=== PATIENT | female | born 1955 | race Caucasian/White ===

== ENCOUNTER → 2016-12-25 | Outpatient (CLI) | payer OTHER, MEDICAID ==
--- NOTE | 2016-12-30 17:11 | RAD ---
HISTORY: Dyspnea on exertion Study: Two-view chest Comparison: 06/07/2013 Findings: The trachea is midline. The cardiac silhouette is unremarkable. The lungs are clear without focal i nfiltrate or effusion. The bony thorax is unremarkable. IMPRESSION: 1. No acute cardiopulmonary disease. Reported By:
== END ==
LOC: RAD 14:41
PROVIDERS: ATTEND Nurse Practitioner Family
DX: R06.09 Other forms of dyspnea (principal)
CPT/HCPCS: 71020

== ENCOUNTER 2020-06-24 16:10 | Observation (INO) ==
--- NOTE | 2020-06-24 16:19 | ED.ABDFE ---
HPI Time Seen Time Seen by Provider: 06/24/20 16:19 Reviewed Nurses Notes Review: Yes Source History Provided: Patient Mode of arrival Mode of Arrival: Ambulatory Timing Came on: Gradually Duration How lon Duration: Days Location Location: [facility] Severity Severity: Moderate Quality Quality: Aching Context History of: Similar pain (dx) (ibs) Modifying factors Worsening Factors: Movement Improving Factors: Lying Still Associated signs and symptoms Associated Signs and Symptoms: Nausea, Diarrhea and Constipation; denies Vomiting, Hematemesis, Hematochezia, Melena, Vaginal Discharge, Dysuria, Frequency and Urgency PMH PMH Past Medical History: Coronary Artery Disease Past Medical History Comment: ibs Surgical History: Angioplasty/Stents Family History History of Family Medical Conditions: No Social History Type of Tobacco Use: None Alcohol Use: Rarely Do you use any recreational Drugs:: No ROS Review of Systems Constitutional: negative Chills and Fever Eyes: No Symptoms Reported ENTM: No Symptoms Reported Respiratoy: No Symptoms Reported Cardiovascular: No Symptoms Reported Gastrointestinal/Abdominal: Abdominal Pain, Constipation, Diarrhea, Nausea and Vomiting Genitourinary: negative Dysuria and Frequency Neurological: No Symptoms Reported Musculoskeletal: No Symptoms Reported Integumentary: No Symptoms Reported Hematologic/Lymphatic: No Symptoms Reported Endocrine: No Symptoms Reported Psychiatric: No Symptoms Reported All Other Systems: Reviewed and Negative PE Vital Signs Vitals: Temperature 36.8 C Pulse Rate 106 Respiratory Rate 20 Blood Pressure 109/89 O2 Sat by Pulse Oximetry 94 General Limitations: No Limitations and Language Barrier General Appearance: Alert, In No Apparent Distress and In Distress (mild- mod pain distress) Head Head Exam: Normal Inspection Eyes Eye exam: Normal Appearance ENT ENT Exam: Normal Exam Neck Neck Exam: Normal Inspection Chest Chest Inspection: Normal Inspection Respiratory Respiratory Exam: Normal Lung Sounds Bilat Cardiovascular Cardiovascular Exam: Regular Rate and Normal Rhythm Abdominal Exam Abdominal Exam: Normal Bowel Sounds, Distention, Tenderness and Guarding; negative Rigidity Abdominal Tenderness: RLQ Rectal Rectal Exam: Deferred Back Back Exam: Normal Inspection Extremeties Extremities Exam: Normal Inspection Neurologic Neurological Exam: Alert and Oriented X3 Psychiatric Psychiatric Exam: Normal Affect and Normal Mood Skin Skin Exam: Warm, Dry and Intact MDM Differential Diagnosis Differential Diagnosis- Considerations may include:: Appendicitis, Bowel Obstruction, Cholcystitis, Constipation, Diverticular disease, Gastritus/PUD, Gastroenteritis, Inflammatory BD, Ischemic Bowel and Pancreatitis COURSE Treatment Treatment: 1658: Patient w/ recent hx of laxative use d/t chronic constipation. Hx of ibs on linzess now w/ rlq abd pain. RLQ tenderness on exam as well as abd distension. Will order labs and possible ct of abd w/ po contrast. 2100: Mild leukocytosis. 2L NSS ordered. CT abd with evidence of acute appendicitis. d/w Dr goodwin whom agrees to consult. Discussed with dr delong whom agrees to admit. 2g ancef given and 500 mg of flagyl. Education/Counseling Education/Counseling: Patient Educated On: Treatment, Diagnosis, Prognosis and Needs for Follow Up ROR Labs Reviewed Laboratory Results Reviewed?: Yes Result Diagrams: 06/24/20 16:46 06/24/20 16:46 Laboratory: WBC 13.8 X10^3/uL (3.6-10.0) H 06/24/20 16:46 RBC 4.76 X10^6/uL (3.5-5.4) 06/24/20 16:46 Hgb 13.7 g/dL (12.0-16.0) 06/24/20 16:46 Hct 40.9 % (36.0-47.0) 06/24/20 16:46 MCV 85.8 fL (80.0-100.0) 06/24/20 16:46 MCH 28.7 pg (27.0-34.0) 06/24/20 16:46 MCHC 33.4 g/dL (33.0-35.0) 06/24/20 16:46 RDW 14.9 % (11.6-16.5) 06/24/20 16:46 Plt Count 214 X10^3/uL (150.0-450.0) 06/24/20 16:46 MPV 8.5 fL (7.4-11.0) 06/24/20 16:46 Neut % (Auto) 82.1 % (42.0-75.0) H 06/24/20 16:46 Lymph % (Auto) 9.5 % (21.0-51.0) L 06/24/20 16:46 Johnson % (Auto) 7.3 % (0.0-13.0) 06/24/20 16:46 Eos % (Auto) 0.5 % (0.9-2.9) L 06/24/20 16:46 Baso % (Auto) 0.6 % (0.2-1.0) 06/24/20 16:46 Neut # (Auto) 11.3 x10^3/uL (2.2-4.8) H 06/24/20 16:46 Lymph # (Auto) 1.3 X10^3/uL (1.3-2.9) 06/24/20 16:46 Johnson # (Auto) 1.0 x10^3/uL (0.3-0.8) H 06/24/20 16:46 Eos # (Auto) 0.1 x10^3/uL (0.0-0.2) 06/24/20 16:46 Baso # (Auto) 0.1 X10^3/uL (0.0-0.1) 06/24/20 16:46 Absolute Nucleated RBC 0.0 /100WBC 06/24/20 16:46 Sodium 139 mmol/L (136-145) 06/24/20 16:46 Corrected Sodium 141 mmol/L (136-145) 06/24/20 16:46 Potassium 3.7 mmol/L (3.5-5.1) 06/24/20 16:46 Chloride 101 mmol/L (98-107) 06/24/20 16:46 Carbon Dioxide 26.6 mmol/L (21-32) 06/24/20 16:46 BUN 10 mg/dL (7-18) 06/24/20 16:46 Creatinine 0.95 mg/dL (0.55-1.02) 06/24/20 16:46 Est GFR (MDRD) Af Amer > 60 (>60) 06/24/20 16:46 Est GFR (MDRD) Non-Af > 60 (>60) 06/24/20 16:46 Glucose 164 mg/dL (65-99) H 06/24/20 16:46 Lactic Acid 1.7 mmol/L (0.4-2.0) 06/24/20 16:46 Calcium 9.6 mg/dL (8.5-10.1) 06/24/20 16:46 Lipase 82 Units/L (73-393) 06/24/20 16:46 XRAY XRAY Interpreted by: Radiologist X-ray Results: ct abd/ pelvis: acute appendicitis abdominal x ray: non specific bowel ashley pattern Opioid Opioid Risk Tool Total: 0 Total Score Risk Category: Low Risk Copyright: Neal DOMINGUEZ predicting aberrant behaviors Diagnosis Discharge Problem: Appendicitis Qualifiers: Appendicitis type: acute appendicitis Acute appendicitis type: with localized peritonitis Appendicitis gangrene presence: without gangrene Appendicitis perforation presence: without perforation Appendicitis abscess presence: without abscess Qualified Code(s): K35.30 - Acute appendicitis with localized peritonitis, without perforation or gangrene Instructions Forms: Patient Portal Social Distancing
[2020-06-24 16:24] VITALS: BMI 23.2
[2020-06-24] MEDS ORDERED: NS 1000 ML 1,000 ML IV ONE ×2 (16:56→21:00)
[2020-06-24] MEDS ORDERED: DILAUDID INJ IVP ONE (16:56)
[2020-06-24] MEDS ORDERED: ZOFRAN INJ 4 MG VIAL IVP ONE (16:56)
--- NOTE | 2020-06-24 16:57 | RAD ---
HISTORY:Right lower quadrant abdominal painStudy: Acute abdominal seriesComparison:NoneFindings:The lungs are clear without consolidation, effusion or pneumothorax. The cardiac and mediastinal contours are within normal limits.Flat plate and upright evaluation of the abdomen demonstrates a nonobstructive bowel gas pattern with scattered gas and stool the large bowel. No gross free intraperitoneal air. No pathological soft tissue mass or calcification can be observed. The bony structures are grossly intact.IMPRESSION:1. No acute cardiopulmonary abnormality.2. Nonspecific bowel gas pattern with scattered stool and air in large bowel.Electronically signed by: LATOYA GREY (Jun 24, 2020 16:55:03)
[2020-06-24] MEDS ORDERED: DILAUDID INJ ONE (16:59)
[2020-06-24] MEDS ORDERED: ZOFRAN INJ 4 MG VIAL ONE ×2 (16:59→22:01)
[2020-06-24] MEDS ORDERED: NS 1000 ML 1,000 ML ONE ×2 (17:00→21:02)
[2020-06-24 17:01] LABS: BASOPHILS # (AUTO) 0.1 X10^3/uL (0.0-0.1); BASOPHILS % (AUTO) 0.6 % (0.2-1.0); EOSINOPHILS # (AUTO) 0.1 x10^3/uL (0.0-0.2); EOSINOPHILS % (AUTO) 0.5 % (0.9-2.9); HEMATOCRIT 40.9 % (36.0-47.0); HEMOGLOBIN 13.7 g/dL (12.0-16.0); LYMPHOCYTES # (AUTO) 1.3 X10^3/uL (1.3-2.9); LYMPHOCYTES % (AUTO) 9.5 % (21.0-51.0); MEAN CORPUSCULAR HEMOGLOBIN 28.7 pg (27.0-34.0); MEAN CORPUSCULAR HGB CONC 33.4 g/dL (33.0-35.0); MEAN CORPUSCULAR VOLUME 85.8 fL (80.0-100.0); MEAN PLATELET VOLUME 8.5 fL (7.4-11.0); MONOCYTES % (AUTO) 7.3 % (0.0-13.0); NEUTROPHILS # (AUTO) 11.3 x10^3/uL (2.2-4.8); NEUTROPHILS % (AUTO) 82.1 % (42.0-75.0); PLATELET COUNT 214 X10^3/uL (150.0-450.0); RED BLOOD COUNT 4.76 X10^6/uL (3.5-5.4); RED CELL DISTRIBUTION WIDTH 14.9 % (11.6-16.5); WHITE BLOOD COUNT 13.8 X10^3/uL (3.6-10.0)
[2020-06-24 17:03] LABS: BLOOD UREA NITROGEN 10 mg/dL (7-18); CALCIUM 9.6 mg/dL (8.5-10.1); CARBON DIOXIDE 26.6 mmol/L (21-32); CHLORIDE 101 mmol/L (98-107); COR NA(FOR HYPERGLY) 141 mmol/L (136-145); CREATININE 0.95 mg/dL (0.55-1.02); SODIUM 139 mmol/L (136-145); eGFR NON BLACK RACES > 60 (>60)
[2020-06-24 17:28] LABS: LACTIC ACID 1.7 mmol/L (0.4-2.0)
[2020-06-24] MEDS ORDERED: NS 100 ML IV 100 ML IV ONE (18:31)
--- NOTE | 2020-06-24 19:53 | CT ---
HISTORYRLQ PAIN, ABD DISTENTIONSTUDYABDOMEN/PELVIS WITH CONCOMPARISONNoneTECHNIQUEAxial CT images of the abdomen and pelvis were obtained after the administration of IV contrast and reformatted into coronal and sagittal planes for further evaluation. Enteric contrast was also administered.Radiation dose: 685.70 mGy-cm total DLPFINDINGSLung bases are clear.Coronary artery calcifications.Stomach appears normal.Solid visceral organs of the upper abdomen are unremarkable.Gallbladder appears normal with no biliary dilatation.Homogeneous enhancement of the kidneys without hydronephrosis or hydroureter.Unremarkable appearance of the urinary bladder.Imaged reproductive structures are unremarkable.Moderate to large stool burden in the colon.Small bowel wall thickening involving the distal and terminal ileum.Irregular thickening of the appendiceal wall with the appendix widened up to 14 mm.Inflammatory changes in the right lower quadrant surrounding the terminal ileum and appendix.No pneumoperitoneum.No significant fluid collection.No adenopathy.No acute osseous abnormality.Severe degenerative disc disease at L5-S1 with vacuum disc phenomena.Otherwise, mild to moderate degenerative disc disease in the thoracolumbar spine without vertebral body height loss.Moderate to severe facet degenerative changes from L3-S1.IMPRESSIONIrregular thickening of the appendiceal wall with the appendix widened up to 14 mm. There are inflammatory changes in the right lower quadrant which are centered on the appendix. The wall thickening in the distal/terminal ileum is therefore likely reactive. Findings are most consistent with acute appendicitis with the irregular wall appearance concerning for impending perforation.Electronically signed by: Ravinder Maria (Jun 24, 2020 19:51:32)
[2020-06-24] MEDS ORDERED: ANCEF VIAL 1 GRAM IVP ONE ×2 (19:57→20:07)
[2020-06-24] MEDS ORDERED: ANCEF VIAL 1 GRAM ONE ×2 (19:59→20:08)
[2020-06-24] MEDS ORDERED: NS 100 ML IV + SPIKE MINIBAG* 100 ML IV ONE ×2 (20:00→20:08)
[2020-06-24] MEDS ORDERED: NS 1000 ML 1,000 ML IV SCH (21:00)
[2020-06-24] MEDS ORDERED: FLAGYL IV PREMIX 500 MG BAG 500 MG/100 ML BAG IV SCH (21:00)
[2020-06-24] MEDS ORDERED: FLAGYL IV PREMIX 500 MG BAG 500 MG/100 ML BAG IV ONE (21:02)
--- NOTE | 2020-06-24 21:02 | RAD ---
HISTORYPRE OPSTUDYCHEST, 1 VIEWCOMPARISONNone availableTECHNIQUEChest radiographic imaging, AP portable projection, 1 imageFINDINGSNo cardiomegaly.No focal airspace disease.No pleural effusion.No pneumothorax.No acute osseous abnormality.IMPRESSIONNo imaging findings of acute cardiopulmonary disease.Electronically signed by: Ravinder Maria (Jun 24, 2020 20:59:51)
[2020-06-24] MEDS ORDERED: BRIDION ONE (21:17)
[2020-06-24] MEDS ORDERED: ZEMURON 50 MG VIAL ONE (21:18)
[2020-06-24] MEDS ORDERED: OFIRMEV IV 1000 MG VIAL 1,000 MG/100 ML VIAL IV ONE (21:18)
[2020-06-24] MEDS ORDERED: FENTANYL INJ 100 mcg ONE (21:18)
[2020-06-24] MEDS ORDERED: LTA KIT LIDOCAINE 4% ONE (22:01)
[2020-06-24] MEDS ORDERED: SUPRANE ONE (22:01)
[2020-06-24] MEDS ORDERED: XYLOCAINE 2 % (PLAIN) ONE (22:01)
[2020-06-24] MEDS ORDERED: VERSED ONE (22:01)
[2020-06-24] MEDS ORDERED: DIPRIVAN VIAL ONE (22:01)
[2020-06-24] MEDS ORDERED: TORADOL 30 MG VIAL ONE (22:01)
[2020-06-24 22:03] LABS: BILIRUBIN,URINE NEGATIVE (NEGATIVE); BLOOD/HEMOGLOBIN,URINE 3+ (NEGATIVE); GLUCOSE, URINE 4+ (NEGATIVE); KETONES,URINE 2+ (NEGATIVE); LEUKOCYTE ESTERASE ,URINE NEGATIVE (NEGATIVE); NITRITES,URINE NEGATIVE (NEGATIVE); PROTEIN,URINE 1+ (NEGATIVE); UROBILINOGEN,URINE NORMAL (NORMAL)
[2020-06-24] MEDS ORDERED: BACTROBAN TOPICAL OINT ONE (22:21)
[2020-06-24 22:23] LABS: APPEARANCE,URINE CLEAR (CLEAR); COLOR,URINE STRAW (YELLOW); RBC,URINE NONE SEEN /HPF (0-3)
[2020-06-24 22:24] LABS: BACTERIA,URINE TRACE /HPF (NEGATIVE); SQUAMOUS EPITHELIAL CELL,UR RARE /HPF (NEGATIVE)
[2020-06-24] MEDS ORDERED: PHENERGAN INJ 25 MG IM PRN (23:27)
[2020-06-24] MEDS ORDERED: BENADRYL INJ 50 MG VIAL IVP PRN (23:27)
[2020-06-24] MEDS ORDERED: ZOFRAN INJ 4 MG VIAL IVP PRN ×2 (23:27→23:35)
[2020-06-24] MEDS ORDERED: REGLAN INJ 10 MG VIAL IVP PRN (23:27)
[2020-06-24] MEDS ORDERED: DILAUDID INJ IVP PRN (23:27)
[2020-06-25] MEDS: D5 1/2 NS 1000 ML 1,000 ML IV SCH ×4 (00:46→23:10)
[2020-06-25] MEDS: ZOSYN VIAL 3.375 GRAMS 3.375 G in NS 100 ML IV + SPIKE MINIBAG* 100 ML IV SCH ×4 (00:47→23:10)
[2020-06-25 06:38] LABS: ALANINE AMINOTRANSFERASE 11 Units/L (12-78); ALBUMIN 2.9 g/dL (3.4-5.0); ALKALINE PHOSPHATASE 51 Units/L (46-116); ASPARTATE AMINO TRANSFERASE 11 Units/L (15-37); BLOOD UREA NITROGEN 11 mg/dL (7-18); CALCIUM 8.1 mg/dL (8.5-10.1); CARBON DIOXIDE 24.7 mmol/L (21-32); CHLORIDE 106 mmol/L (98-107); COR NA(FOR HYPERGLY) 143 mmol/L (136-145); CREATININE 0.87 mg/dL (0.55-1.02); SODIUM 141 mmol/L (136-145); TOTAL PROTEIN 6.5 g/dL (6.4-8.2); eGFR NON BLACK RACES > 60 (>60)
[2020-06-25 07:17] LABS: BASOPHILS % (AUTO) 0.3 % (0.2-1.0); EOSINOPHILS % (AUTO) 0.1 % (0.9-2.9); HEMATOCRIT 34.4 % (36.0-47.0); HEMOGLOBIN 11.3 g/dL (12.0-16.0); LYMPHOCYTES # (AUTO) 0.7 X10^3/uL (1.3-2.9); MEAN CORPUSCULAR HEMOGLOBIN 28.6 pg (27.0-34.0); MEAN CORPUSCULAR HGB CONC 32.9 g/dL (33.0-35.0); MEAN CORPUSCULAR VOLUME 86.8 fL (80.0-100.0); MEAN PLATELET VOLUME 7.4 fL (7.4-11.0); MONOCYTES # (AUTO) 0.5 x10^3/uL (0.3-0.8); NEUTROPHILS # (AUTO) 7.5 x10^3/uL (2.2-4.8); NEUTROPHILS % (AUTO) 85.6 % (42.0-75.0); PLATELET COUNT 206 X10^3/uL (150.0-450.0); RED BLOOD COUNT 3.96 X10^6/uL (3.5-5.4); WHITE BLOOD COUNT 8.8 X10^3/uL (3.6-10.0)
[2020-06-25] MEDS: FLAGYL IV PREMIX 500 MG BAG 500 MG/100 ML BAG IV SCH ×2 (08:20→16:31)
--- NOTE | 2020-06-25 08:20 | DR.PROGNOT ---
Hospital Progress Notes - Progress Note for Day of: Progress Note Date: 06/25/20 - Chief Complaint Chief Complaint: doing very well . less abdominal pain , no nausea or vomiting . BP is above 100 all night .( Pt was dehydrated and behind in fluid ). WBC is normal . Temp 98.2 - Past Medical Family Social History Past Med/Fam/Surg Hx: No changes since H&P Allergies: Allergies No Known Drug Allergies Allergy (Verified 06/24/20 17:20) - Review Of Systems ROS: No change since H&P - Vital Signs Vital Signs: Temperature 98.2 F Pulse Rate [Left Radial] 69 Pulse Rate 89 Respiratory Rate 18 Blood Pressure [Left Arm] 102/63 Blood Pressure 88/55 O2 Sat by Pulse Oximetry 98 - Physical Exam Oriented: Normal Eyes: Normal Ear: Normal Nose: Normal Throat: Normal Cardiovascular: Normal : Normal GI:Auscultation: Decreased GI:Palpation: Normal GI: Tenderness: Diffuse (soft , full abdomen with hypoactive BS ) Mood Description: Calm Speech Pattern: Appropriate - Laboratory and Diagnostics Result Diagrams: 06/25/20 05:46 06/25/20 05:46 Labs: Laboratory WBC 8.8 X10^3/uL (3.6-10.0) 06/25/20 05:46 RBC 3.96 X10^6/uL (3.5-5.4) 06/25/20 05:46 Hgb 11.3 g/dL (12.0-16.0) L D 06/25/20 05:46 Hct 34.4 % (36.0-47.0) L 06/25/20 05:46 MCV 86.8 fL (80.0-100.0) 06/25/20 05:46 MCH 28.6 pg (27.0-34.0) 06/25/20 05:46 MCHC 32.9 g/dL (33.0-35.0) L 06/25/20 05:46 RDW 15.0 % (11.6-16.5) 06/25/20 05:46 Plt Count 206 X10^3/uL (150.0-450.0) 06/25/20 05:46 MPV 7.4 fL (7.4-11.0) 06/25/20 05:46 Neut % (Auto) 85.6 % (42.0-75.0) H 06/25/20 05:46 Lymph % (Auto) 8.0 % (21.0-51.0) L 06/25/20 05:46 Glacier % (Auto) 6.0 % (0.0-13.0) 06/25/20 05:46 Eos % (Auto) 0.1 % (0.9-2.9) L 06/25/20 05:46 Baso % (Auto) 0.3 % (0.2-1.0) 06/25/20 05:46 Neut # (Auto) 7.5 x10^3/uL (2.2-4.8) H 06/25/20 05:46 Lymph # (Auto) 0.7 X10^3/uL (1.3-2.9) L 06/25/20 05:46 Glacier # (Auto) 0.5 x10^3/uL (0.3-0.8) 06/25/20 05:46 Eos # (Auto) 0.0 x10^3/uL (0.0-0.2) 06/25/20 05:46 Baso # (Auto) 0.0 X10^3/uL (0.0-0.1) 06/25/20 05:46 Absolute Nucleated RBC 0.0 /100WBC 06/25/20 05:46 Sodium 141 mmol/L (136-145) 06/25/20 05:46 Corrected Sodium 143 mmol/L (136-145) 06/25/20 05:46 Potassium 3.7 mmol/L (3.5-5.1) 06/25/20 05:46 Chloride 106 mmol/L (98-107) 06/25/20 05:46 Carbon Dioxide 24.7 mmol/L (21-32) 06/25/20 05:46 BUN 11 mg/dL (7-18) 06/25/20 05:46 Creatinine 0.87 mg/dL (0.55-1.02) 06/25/20 05:46 Est GFR (MDRD) Af Amer > 60 (>60) 06/25/20 05:46 Est GFR (MDRD) Non-Af > 60 (>60) 06/25/20 05:46 Glucose 177 mg/dL (65-99) H 06/25/20 05:46 POC Glucose (mg/dL) 173 mg/dL (65-99) H 06/25/20 05:08 Lactic Acid 1.7 mmol/L (0.4-2.0) 06/24/20 16:46 Calcium 8.1 mg/dL (8.5-10.1) L 06/25/20 05:46 Corrected Calcium 9.0 mg/dL (8.5-10.1) 06/25/20 05:46 Total Bilirubin 0.60 mg/dL (0.2-1.0) 06/25/20 05:46 AST 11 Units/L (15-37) L 06/25/20 05:46 ALT 11 Units/L (12-78) L 06/25/20 05:46 Alkaline Phosphatase 51 Units/L (46-116) 06/25/20 05:46 Total Protein 6.5 g/dL (6.4-8.2) 06/25/20 05:46 Albumin 2.9 g/dL (3.4-5.0) L 06/25/20 05:46 Globulin 3.6 g/dL (2.5-4.5) 06/25/20 05:46 Albumin/Globulin Ratio 0.8 Ratio (1.1-2.1) L 06/25/20 05:46 Lipase 82 Units/L (73-393) 06/24/20 16:46 Specimen Type Clean catch urine 06/24/20 21:02 Urine Color Straw (YELLOW) 06/24/20 21:02 Urine Appearance Clear (CLEAR) 06/24/20 21:02 Urine pH 5.0 (5.0 - 8.0) 06/24/20 21:02 Ur Specific Mclean 1.015 (1.000-1.030) 06/24/20 21:02 Urine Protein 1+ (NEGATIVE) 06/24/20 21:02 Urine Glucose (UA) 4+ (NEGATIVE) 06/24/20 21:02 Urine Ketones 2+ (NEGATIVE) 06/24/20 21:02 Urine Occult Blood 3+ (NEGATIVE) 06/24/20 21:02 Urine Nitrite Negative (NEGATIVE) 06/24/20 21:02 Urine Bilirubin Negative (NEGATIVE) 06/24/20 21:02 Urine Urobilinogen Normal (NORMAL) 06/24/20 21:02 Ur Leukocyte Esterase Negative (NEGATIVE) 06/24/20 21:02 Urine RBC None seen /HPF (0-3) 06/24/20 21:02 Urine WBC None seen /HPF (0-5) 06/24/20 21:02 Ur Squamous Epith Cells Rare /HPF (NEGATIVE) 06/24/20 21:02 Urine Bacteria Trace /HPF (NEGATIVE) 06/24/20 21:02 Ur Culture Indicated? No/not indicated 06/24/20 21:02 Tissue Pathology To follow 06/24/20 22:50 - Assessment and Plan 1: post op lap appendectomy for ruptured appendicitis with abscess RLQ . same PO care . OOB , clear liquid . - Problem Patient Problems: Patient Problems Appendicitis (Acute) K37
[2020-06-25] MEDS: LOVENOX INJ 40 MG SYR SC SCH (09:38)
[2020-06-25] MEDS: DILAUDID INJ IVP PRN ×2 (09:57→17:51)
[2020-06-25] MEDS: LYRICA CAP 50 mg PO SCH (20:45)
[2020-06-25] MEDS ORDERED: CRESTOR TAB 10 MG PO SCH (21:00)
[2020-06-25] MEDS ORDERED: ELAVIL PO SCH (21:00)
[2020-06-26] MEDS: FLAGYL IV PREMIX 500 MG BAG 500 MG/100 ML BAG IV SCH ×2 (01:10→09:01)
[2020-06-26] MEDS: D5 1/2 NS 1000 ML 1,000 ML IV SCH (06:59)
[2020-06-26 08:35] VITALS: BP 107/71
[2020-06-26] MEDS ORDERED: ZOLOFT PO SCH (09:00)
[2020-06-26] MEDS: ZOSYN VIAL 3.375 GRAMS 3.375 G in NS 100 ML IV + SPIKE MINIBAG* 100 ML IV SCH (09:01)
[2020-06-26] MEDS: LYRICA CAP 50 mg PO SCH (09:02)
[2020-06-26] MEDS: LOVENOX INJ 40 MG SYR SC SCH (09:20)
== END 2020-06-26 09:50 | disposition home or self-care (01) ==
LOC: ER 16:17 → INTOOBSV 21:06 → MED/SURG 21:06
PROVIDERS: ADMIT Internal Medicine; ATTEND Internal Medicine
PROC: APPYLAP (ICD-10-PCS; 2020-06-24 22:15)
DX: M19.90 Unspecified osteoarthritis, unspecified site; I10 Essential (primary) hypertension; E11.65 Type 2 diabetes mellitus with hyperglycemia; I25.10 Atherosclerotic heart disease of native coronary artery without angina pectoris; K35.21 Acute appendicitis with generalized peritonitis, with abscess

== ENCOUNTER 2023-05-27 16:28 | Observation (INO) ==
--- NOTE | 2023-05-27 17:22 | DR.H&P ---
H&P History & Physical for Day of: H&P Date: 05/27/23 Chief Complaint Chief Complaint: left side weakness, legs swelling and "cannot walk" per family Allergies Allergies Allergy/AdvReac Type Severity Reaction Status Date / Time No Known Drug Allergies Allergy Unknown Verified 04/06/23 16:00 History of Present Illness History of Present Illness: PT IS 68 WF, DIRECT ADMIT FROM DR POWELL OFFICE WITH CO LEFT SIDE WEAKNESS ONSET 2 WEEKS AGO. PT WAS SEEN IN ER AT THAT TIME AND HAD CT OF HEAD AND REPORTED NO CVA. PT HAS HAD SEVERE BILATERAL FEET AND ANKLE SWELLING AND ABDOMINAL DISTENTION. PT IS LEANING TO LEFT SIDE WITH WEAKNESS TO LEFT UPPER AND LOWER EXTREMITY. PT HAS PMH OF HTN, DM, CAD, BOLTON, NEUROPATHY, GERD AND LSPINE DDD. PT ADMITTED FOR TREATMENT AND EVALUATION OF ACUTE ILLNESS AND CONSULT FOR REHAB THERAPY PLACEMENT. Past Medical History Past Medical History: CHF, Coronary Artery Disease, Diabetes and Renal Disease Past Surgical History Surgical History: Angioplasty/Stents (CARDIAC X2, LLE ARTERIAL STENT X1 ), Appendectomy and Ortho Surgery Family History Family Medical History: Coronary Artery Disease Medications Home Medications: Home Medications Medication Instructions Recorded Confirmed Type hydrocodone 5 mg-acetaminophen 325 1 tab PO QDAY PRN 04/01/23 05/04/23 History mg tablet omeprazole 40 mg capsule,delayed 40 mg PO DAILY 04/01/23 05/04/23 History release rosuvastatin 10 mg tablet 10 mg PO QPM 04/01/23 05/04/23 History sertraline 50 mg tablet 50 mg PO QDAY 04/01/23 05/04/23 History amitriptyline 10 mg tablet 10 mg PO QPM 05/04/23 05/04/23 History linaclotide 145 mcg capsule 145 mcg PO DAILY 05/04/23 05/04/23 History (Malick) Review of Systems Constitutional: Weakness and Malaise Eyes: No Symptoms Reported ENT: No Symptoms Reported Respiratory: SOB with Excertion Cardiovascular: Edema and Light Headedness Gastrointestinal: Abdominal Pain and Constipation Genitourinary: Frequency Musculoskeletal: Back Pain Neurological: Weakness, Incoordination and Change in Speech (MILD SLURRING,NEW FOR TWO WEEKS.) Oriented: Normal Eyes: Normal Ear: Normal Nose: Normal Throat: Dry Respiratory: Diminished Throughout Cardiovascular: Tachycardia and Edema Auscultation: Bowel Sounds: Decreased Palpation: Other (DIFFUSE ABDOMINAL DISTENTION) Tenderness: Diffuse Skin: Decreased Turgur Musculoskeletal: Back:Lumbar, Motor Deficit and Sensory Deficit Psychiatric: Depression Affect: Anxious and Depressed Speech Pattern: Delayed and Slurred (MILD) Assessment/Plan (1) TIA (transient ischemic attack): Narrative Support Text: ADMIT, IV HYDRATION CXR ON ADMISSION, UC/BC CE AND EKG BS CONTROL PT CONSULT, BP CONTROL VERIFY HOME MEDICATIONS MRI BRAIN, FLP Status: Acute (2) Diabetic peripheral neuropathy: Status: Acute (3) Vasovagal near syncope: Status: Acute (4) Generalized weakness: Status: Acute (5) Heart disease: Status: None (6) Diabetes mellitus: Status: None (7) CHF (congestive heart failure): Status: Acute
--- NOTE | 2023-05-27 17:36 | EKG ---
Test Reason : sob, chf, leg swelling Blood Pressure : */* mmHG Vent. Rate : 78 BPM Atrial Rate : 78 BPM P-R Int : 188 ms QRS Dur : 86 ms QT Int : 392 ms P-R-T Axes : 79 -7 67 degrees QTc Int : 446 ms Normal sinus rhythm Normal ECG When compared with ECG of 22-MAY-2023 13:07, Criteria for Septal infarct are no longer present Confirmed by Dylon Kelley MD ([id number]) on 05/28/2023 7:33:05 AM Referred By: Confirmed By: Dylon Kelley MD
[2023-05-27] MEDS: NS 1,000 ML IV 1,000 ML IV SCH (18:33)
[2023-05-27] MEDS: PROTONIX INJ 40 MG VIAL IVP SCH (18:50)
[2023-05-27 19:01] LABS: BASOPHILS # (AUTO) 0.1 X10^3/uL (0.0-0.1); BASOPHILS % (AUTO) 0.8 % (0.2-1.0); EOSINOPHILS # (AUTO) 0.2 x10^3/uL (0.0-0.2); EOSINOPHILS % (AUTO) 2.3 % (0.9-2.9); HEMATOCRIT 35.4 % (36.0-47.0); HEMOGLOBIN 11.6 g/dL (12.0-16.0); LYMPHOCYTES # (AUTO) 1.9 X10^3/uL (1.3-2.9); LYMPHOCYTES % (AUTO) 24.5 % (21.0-51.0); MEAN CORPUSCULAR HEMOGLOBIN 27.7 pg (27.0-34.0); MEAN CORPUSCULAR HGB CONC 32.9 g/dL (33.0-35.0); MEAN CORPUSCULAR VOLUME 84.1 fL (80.0-100.0); MEAN PLATELET VOLUME 9.2 fL (7.4-11.0); MONOCYTES # (AUTO) 0.6 x10^3/uL (0.3-0.8); MONOCYTES % (AUTO) 7.6 % (0.0-13.0); NEUTROPHILS # (AUTO) 5.1 x10^3/uL (2.2-4.8); NEUTROPHILS % (AUTO) 64.8 % (42.0-75.0); PLATELET COUNT 145 X10^3/uL (150.0-450.0); RED BLOOD COUNT 4.21 X10^6/uL (3.5-5.4); RED CELL DISTRIBUTION WIDTH 15.1 % (11.6-16.5); WHITE BLOOD COUNT 7.9 X10^3/uL (3.6-10.0)
[2023-05-27 19:13] LABS: ALANINE AMINOTRANSFERASE 32 Units/L (12-78); ALBUMIN 3.6 g/dL (3.4-5.0); ALKALINE PHOSPHATASE 61 Units/L (46-116); ASPARTATE AMINO TRANSFERASE 24 Units/L (15-37); BLOOD UREA NITROGEN 15 mg/dL (7-18); CARBON DIOXIDE 28.6 mmol/L (21-32); CHLORIDE 106 mmol/L (98-107); CREATININE 0.77 mg/dL (0.55-1.02); GLUCOSE 110 mg/dL (65-99); MAGNESIUM 1.6 mg/dL (2.0-2.9); POTASSIUM 3.6 mmol/L (3.5-5.1); SODIUM 144 mmol/L (136-145); TOTAL PROTEIN 7.2 g/dL (6.4-8.2); eGFR NON BLACK RACES > 60 (>60)
--- NOTE | 2023-05-27 19:52 | RAD ---
EXAM:ACUTE ABDOMEN SERI ESHISTORY:Abdominal DISTENTION;COMPARISON:CT exam May 04, 2023TECHNIQUE:Frontal chest radiograph with abdominal KUBFINDINGS:Heart silhouette is enlarged. Lungs are grossly clear. There is a large volume of stool in the colon. There is gaseous distention of abdominal bowel loops. There is gaseous distention of the stomach. There is a vascular stent present in the left iliac region.IMPRESSION:Large volume of colonic stool with bowel obstruction versus ileus.THIS IS AN ELECTRONICALLY VERIFIED FINAL REPORT05/27/2023 7:46 PM - Electronically signed by Guru Sandoval MD
[2023-05-27] MEDS: CRESTOR TAB 10 MG PO SCH (20:26)
[2023-05-27 21:49] LABS: BILIRUBIN,URINE NEGATIVE (NEGATIVE); BLOOD/HEMOGLOBIN,URINE NEGATIVE (NEGATIVE); GLUCOSE, URINE 2+ (NEGATIVE); KETONES,URINE NEGATIVE (NEGATIVE); LEUKOCYTE ESTERASE ,URINE 1+ (NEGATIVE); NITRITES,URINE NEGATIVE (NEGATIVE); PROTEIN,URINE 1+ (NEGATIVE); UROBILINOGEN,URINE NORMAL (NORMAL)
[2023-05-27 21:50] LABS: APPEARANCE,URINE CLEAR (CLEAR); COLOR,URINE DARK YELLOW (YELLOW)
[2023-05-27 22:07] LABS: BACTERIA,URINE TRACE /HPF (NEGATIVE); RBC,URINE NONE SEEN /HPF (0-3); SQUAMOUS EPITHELIAL CELL,UR FEW /HPF (NEGATIVE)
[2023-05-27] MEDS: NORCO 5/325 MG TAB PO PRN (22:23)
[2023-05-28 05:45] LABS: BASOPHILS # (AUTO) 0.1 X10^3/uL (0.0-0.1); BASOPHILS % (AUTO) 1.1 % (0.2-1.0); EOSINOPHILS # (AUTO) 0.2 x10^3/uL (0.0-0.2); EOSINOPHILS % (AUTO) 4.8 % (0.9-2.9); HEMOGLOBIN 10.8 g/dL (12.0-16.0); LYMPHOCYTES # (AUTO) 1.3 X10^3/uL (1.3-2.9); LYMPHOCYTES % (AUTO) 27.3 % (21.0-51.0); MEAN CORPUSCULAR HEMOGLOBIN 27.4 pg (27.0-34.0); MEAN CORPUSCULAR HGB CONC 32.8 g/dL (33.0-35.0); MEAN CORPUSCULAR VOLUME 83.6 fL (80.0-100.0); MONOCYTES # (AUTO) 0.4 x10^3/uL (0.3-0.8); MONOCYTES % (AUTO) 7.5 % (0.0-13.0); NEUTROPHILS # (AUTO) 2.8 x10^3/uL (2.2-4.8); NEUTROPHILS % (AUTO) 59.3 % (42.0-75.0); PLATELET COUNT 170 X10^3/uL (150.0-450.0); RED BLOOD COUNT 3.95 X10^6/uL (3.5-5.4); WHITE BLOOD COUNT 4.7 X10^3/uL (3.6-10.0)
[2023-05-28 06:03] LABS: ALANINE AMINOTRANSFERASE 26 Units/L (12-78); ALBUMIN 3.1 g/dL (3.4-5.0); ALKALINE PHOSPHATASE 54 Units/L (46-116); ASPARTATE AMINO TRANSFERASE 20 Units/L (15-37); BLOOD UREA NITROGEN 13 mg/dL (7-18); CALCIUM 8.5 mg/dL (8.5-10.1); CARBON DIOXIDE 28.3 mmol/L (21-32); CHLORIDE 109 mmol/L (98-107); CHOL/HDL RATIO 1.8 (0.0-5.0); CHOLESTEROL 108 mg/dL (0-200); COR CA(FOR HYPOALB) 9.2 mg/dL (8.5-10.1); CREATINE KINASE 50 Units/L (26-192); CREATININE 0.64 mg/dL (0.55-1.02); GLUCOSE 92 mg/dL (65-99); HDL CHOLESTEROL 60 mg/dL (40-60); MAGNESIUM 1.6 mg/dL (2.0-2.9); POTASSIUM 3.3 mmol/L (3.5-5.1); SODIUM 144 mmol/L (136-145); TOTAL PROTEIN 6.2 g/dL (6.4-8.2); TRIGLYCERIDES 40 mg/dL (0-150); eGFR NON BLACK RACES > 60 (>60)
[2023-05-28] MEDS ORDERED: CONSULT PHARMACY - POTASSIUM & MAGNESIUM XX SCH (07:00)
[2023-05-28] MEDS: ELIQUIS PO SCH (08:32)
[2023-05-28] MEDS: ZOLOFT PO SCH (08:33)
[2023-05-28] MEDS: K-DUR TAB 20 MEQ PO SCH (08:33)
[2023-05-28] MEDS: MAG-OX TAB PO SCH (08:33)
[2023-05-28] MEDS: ROCEPHIN VIAL 1 GRAM 1 G in NS 100 ML IV 100 ML IV SCH (08:54)
[2023-05-28 09:02] VITALS: RESP 20
--- NOTE | 2023-05-28 16:15 | MRI ---
EXAM: BRAIN W/O CON HISTORY: left side weakness, new onset; COMPARISON: Head CT 05/22/2023 TECHNIQUE: Multiplanar multisequence MRI of the brain was obtained without contrast using standard departmental protocol. FINDINGS: Diffusion sequences show no abnormal signal. No evidence for acute ischemia. Age-related findings include central and cortical atrophy with abnormal signal in the periventricular white matter, most likely the micro-ischemic changes of aging. Otherwise henriquez and white matter have normal differentiation. There is no mass, shift, or hemorrhage. Cerebellar tonsils are at an appropriate level. There is normal signal flow void in the central vessels. Tiny punctate area low signal in the right cerebellum on susceptibility sequences could be a calcification or a very small focal area of old tracie rohemorrhage. This is not acute. No fluid in the sinuses or mucosal thickening to suggest sinusitis. There is no mastoid effusion. IMPRESSION: 1. No acute findings THIS IS AN ELECTRONICALLY VERIFIED FINAL REPORT 05/28/2023 4:12 PM - Electronically signed by Arsh Tenorio MD
[2023-05-28 23:22] VITALS: TEMP 97.9
[2023-05-29 06:17] LABS: BASOPHILS % (AUTO) 0.3 % (0.2-1.0); EOSINOPHILS # (AUTO) 0.3 x10^3/uL (0.0-0.2); HEMATOCRIT 33.7 % (36.0-47.0); HEMOGLOBIN 11.3 g/dL (12.0-16.0); LYMPHOCYTES # (AUTO) 1.8 X10^3/uL (1.3-2.9); LYMPHOCYTES % (AUTO) 32.4 % (21.0-51.0); MEAN CORPUSCULAR HEMOGLOBIN 27.7 pg (27.0-34.0); MEAN CORPUSCULAR HGB CONC 33.4 g/dL (33.0-35.0); MEAN CORPUSCULAR VOLUME 82.9 fL (80.0-100.0); MEAN PLATELET VOLUME 9.4 fL (7.4-11.0); MONOCYTES # (AUTO) 0.4 x10^3/uL (0.3-0.8); MONOCYTES % (AUTO) 7.9 % (0.0-13.0); NEUTROPHILS % (AUTO) 54.4 % (42.0-75.0); PLATELET COUNT 136 X10^3/uL (150.0-450.0); RED BLOOD COUNT 4.07 X10^6/uL (3.5-5.4); RED CELL DISTRIBUTION WIDTH 14.8 % (11.6-16.5); WHITE BLOOD COUNT 5.5 X10^3/uL (3.6-10.0)
[2023-05-29 06:28] LABS: ALANINE AMINOTRANSFERASE 22 Units/L (12-78); ALBUMIN 3.2 g/dL (3.4-5.0); ALKALINE PHOSPHATASE 55 Units/L (46-116); ASPARTATE AMINO TRANSFERASE 19 Units/L (15-37); BLOOD UREA NITROGEN 14 mg/dL (7-18); CALCIUM 8.9 mg/dL (8.5-10.1); CARBON DIOXIDE 28.7 mmol/L (21-32); CHLORIDE 106 mmol/L (98-107); COR CA(FOR HYPOALB) 9.5 mg/dL (8.5-10.1); CREATININE 0.69 mg/dL (0.55-1.02); GLUCOSE 105 mg/dL (65-99); MAGNESIUM 1.8 mg/dL (2.0-2.9); POTASSIUM 3.9 mmol/L (3.5-5.1); SODIUM 142 mmol/L (136-145); TOTAL PROTEIN 6.5 g/dL (6.4-8.2); eGFR NON BLACK RACES > 60 (>60)
[2023-05-29] MEDS ORDERED: CONSULT PHARMACY - POTASSIUM & MAGNESIUM XX SCH (07:00)
[2023-05-29 09:03] VITALS: BP 136/77; PULSE 72; O2SAT 100
--- NOTE | 2023-05-29 11:45 | PCM.PROG ---
Progress Note Progress Note for Day of Date of Exam: 05/28/23 Subjective Subjective: PT IS 68 WF, DIRECT ADMIT ON 05/27/[address] POWELL OFFICE WITH CO LEFT SIDE WEAKNESS -ONSET 2 WEEKS AGO. PT WAS SEEN IN ER AT ONSET OF SYMPTOMS AND HAD CT OF HEAD THAT REPORTED NO CVA. SINCE ONSET OF WEAKNESS, SHE HAS ALSO HAD SEVERE BILATERAL FEET/ANKLE EDEMA AND ABDOMINAL DISTENTION. SHE IS NOTED TO LEAN TO LEFT SIDE WITH WEAKNESS TO LEFT UPPER AND LOWER EXTREMITY. UPON ADMISSION, PATIENT WAS STARTED ON IV HYDRATION. WE OBTAINED AN ABDOMINAL XRAY THAT SHOWED LARGE VOLUME OF COLONIC STOOL WITH BOWEL OBSTRUCTION VERSUS ILEUS. SHE WAS TREATED WITH A SOAP SUDS ENEMA. ADMISSION LABS: WBC 7.9, HGB 11.6, PLT 145, BUN 15/CREATININE 0.77, MAGNESIUM 1.6. CARDIAC ENZYMES OBTAINED WITH NORMAL RESULTS. URINE AND BLOOD CULTURES WERE OBTAINED AND URINE CULTURE IS SHOWING NO GROWTH AT DAY 1. AM LABS: WBC 4.7, HGB 10.8, PLT 170, BUN 13/CREATININE 0.64, MAGNESIUM 1.6. MORNING VITALS: 123/71-82-20-98.1-99%. Past Medical Family Social History Allergies: Allergies No Known Drug Allergies Allergy (Unknown, Verified 04/06/23 16:00) Onset Date: 07/05/2020 Vital Signs and I&O's Vital Signs: Vital Signs Temperature 100.6 F Pulse Rate [Left Brachial] 78 Respiratory Rate 20 Blood Pressure [Left Arm] 145/85 O2 Sat by Pulse Oximetry 97 Intake and Output: Intake & Output 05/26/23 05/27/23 05/28/23 05/29/23 11:59 11:59 11:59 11:59 Intake Total 1216 / 1216 1116 / 1116 Balance 1216 / 1216 1116 / 1116 Physical Exam Oriented: Normal Eyes: Normal Ear: Normal Nose: Normal Throat: Dry Cardiovascular: Tachycardia and Edema Auscultation: Bowel Sounds: Decreased Tenderness: Diffuse Skin: Decreased Turgur Musculoskeletal: Back:Lumbar, Motor Deficit and Sensory Deficit Psychiatric: Depression Affect: Anxious and Depressed Speech Pattern: Clear and Appropriate Laboratory and Diagnostics 05/29/23 05:53 05/29/23 05:53 Labs: 05/27/23 21:30 Urine,Clean Catch Urine Culture - Preliminary Laboratory WBC 4.7 X10^3/uL (3.6-10.0) 05/28/23 05:00 RBC 3.95 X10^6/uL (3.5-5.4) 05/28/23 05:00 Hgb 10.8 g/dL (12.0-16.0) L 05/28/23 05:00 Hct 33.0 % (36.0-47.0) L 05/28/23 05:00 MCV 83.6 fL (80.0-100.0) 05/28/23 05:00 MCH 27.4 pg (27.0-34.0) 05/28/23 05:00 MCHC 32.8 g/dL (33.0-35.0) L 05/28/23 05:00 RDW 15.0 % (11.6-16.5) 05/28/23 05:00 Plt Count 170 X10^3/uL (150.0-450.0) 05/28/23 05:00 MPV 9.0 fL (7.4-11.0) 05/28/23 05:00 Neut % (Auto) 59.3 % (42.0-75.0) 05/28/23 05:00 Lymph % (Auto) 27.3 % (21.0-51.0) 05/28/23 05:00 [place] % (Auto) 7.5 % (0.0-13.0) 05/28/23 05:00 Eos % (Auto) 4.8 % (0.9-2.9) H 05/28/23 05:00 Baso % (Auto) 1.1 % (0.2-1.0) H 05/28/23 05:00 Neut # (Auto) 2.8 x10^3/uL (2.2-4.8) 05/28/23 05:00 Lymph # (Auto) 1.3 X10^3/uL (1.3-2.9) 05/28/23 05:00 [place] # (Auto) 0.4 x10^3/uL (0.3-0.8) 05/28/23 05:00 Eos # (Auto) 0.2 x10^3/uL (0.0-0.2) 05/28/23 05:00 Baso # (Auto) 0.1 X10^3/uL (0.0-0.1) 05/28/23 05:00 Absolute Nucleated RBC 0.1 /100WBC 05/28/23 05:00 Sodium 144 mmol/L (136-145) 05/28/23 05:00 Corrected Sodium TNP 05/28/23 05:00 Potassium 3.3 mmol/L (3.5-5.1) L 05/28/23 05:00 Chloride 109 mmol/L (98-107) H 05/28/23 05:00 Carbon Dioxide 28.3 mmol/L (21-32) 05/28/23 05:00 BUN 13 mg/dL (7-18) 05/28/23 05:00 Creatinine 0.64 mg/dL (0.55-1.02) 05/28/23 05:00 Est GFR (MDRD) Af Amer > 60 (>60) 05/28/23 05:00 Est GFR (MDRD) Non-Af > 60 (>60) 05/28/23 05:00 Glucose 92 mg/dL (65-99) 05/28/23 05:00 Calcium 8.5 mg/dL (8.5-10.1) 05/28/23 05:00 Corrected Calcium 9.2 mg/dL (8.5-10.1) 05/28/23 05:00 Magnesium 1.6 mg/dL (2.0-2.9) L 05/28/23 05:00 Total Bilirubin 0.50 mg/dL (0.2-1.0) 05/28/23 05:00 AST 20 Units/L (15-37) 05/28/23 05:00 ALT 26 Units/L (12-78) 05/28/23 05:00 Alkaline Phosphatase 54 Units/L (46-116) 05/28/23 05:00 Creatine Kinase 50 Units/L (26-192) 05/28/23 05:00 Troponin I High Sens 5.7 ng/L (4.0-60.0) 05/28/23 05:00 B-Natriuretic Peptide 13.7 pg/mL (0-79) 05/27/23 18:40 Total Protein 6.2 g/dL (6.4-8.2) L 05/28/23 05:00 Albumin 3.1 g/dL (3.4-5.0) L 05/28/23 05:00 Globulin 3.1 g/dL (2.5-4.5) 05/28/23 05:00 Albumin/Globulin Ratio 1.0 Ratio (1.1-2.1) L 05/28/23 05:00 Triglycerides 40 mg/dL (0-150) 05/28/23 05:00 Cholesterol 108 mg/dL (0-200) 05/28/23 05:00 LDL Cholesterol, Calc 40 mg/dL (0-100) 05/28/23 05:00 HDL Cholesterol 60 mg/dL (40-60) 05/28/23 05:00 Cholesterol/HDL Ratio 1.8 (0.0-5.0) 05/28/23 05:00 Specimen Type Clean catch urine 05/27/23 21:30 Urine Color Dark yellow (YELLOW) 05/27/23 21:30 Urine Appearance Clear (CLEAR) 05/27/23 21:30 Urine pH 5.0 (5.0 - 8.0) 05/27/23 21:30 Ur Specific [place] 1.025 (1.000-1.030) 05/27/23 21:30 Urine Protein 1+ (NEGATIVE) 05/27/23 21:30 Urine Glucose (UA) 2+ (NEGATIVE) 05/27/23 21:30 Urine Ketones Negative (NEGATIVE) 05/27/23 21:30 Urine Blood Negative (NEGATIVE) 05/27/23 21:30 Urine Nitrite Negative (NEGATIVE) 05/27/23 21:30 Urine Bilirubin Negative (NEGATIVE) 05/27/23 21:30 Urine Urobilinogen Normal (NORMAL) 05/27/23 21:30 Ur Leukocyte Esterase 1+ (NEGATIVE) 05/27/23 21:30 Urine RBC None seen /HPF (0-3) 05/27/23 21:30 Urine WBC 3-5 /HPF (0-5) 05/27/23 21:30 Ur Squamous Epith Cells Few /HPF (NEGATIVE) 05/27/23 21:30 Urine Bacteria Trace /HPF (NEGATIVE) 05/27/23 21:30 Urine Mucus Few /HPF (NEGATIVE) 05/27/23 21:30 Ur Culture Indicated? Yes/culture set up 05/27/23 21:30 Plan (1) TIA (transient ischemic attack): Status: Acute Narrative Support Text: CONTINUE IV HYDRATION, BLOOD PRESSURE, BLOOD SUGAR CONTROL, ELIQUIS, STATIN, PHYSICAL THERAPY. MRI OF BRAIN RESULTS PENDING. (2) Diabetic peripheral neuropathy: Status: Acute (3) Vasovagal near syncope: Status: Acute (4) Generalized weakness: Status: Acute (5) Heart disease: Status: None (6) Diabetes mellitus: Status: None (7) CHF (congestive heart failure): Status: Acute
== END 2023-05-29 12:20 | disposition home health service (06) ==
LOC: MED/SURG
PROVIDERS: ADMIT Internal Medicine; ATTEND Internal Medicine
DX: R60.0 Localized edema; E11.42 Type 2 diabetes mellitus with diabetic polyneuropathy; E11.65 Type 2 diabetes mellitus with hyperglycemia; G45.8 Other transient cerebral ischemic attacks and related syndromes; I11.0 Hypertensive heart disease with heart failure; R53.1 Weakness; I50.9 Heart failure, unspecified; R55 Syncope and collapse; R26.89 Other abnormalities of gait and mobility; I25.10 Atherosclerotic heart disease of native coronary artery without angina pectoris; K56.609 Unspecified intestinal obstruction, unspecified as to partial versus complete obstruction; K21.9 Gastro-esophageal reflux disease without esophagitis; R00.0 Tachycardia, unspecified

== ENCOUNTER 2024-05-16 18:50 | Observation (INO) ==
--- NOTE | 2024-05-16 19:02 | DR.EXTPAIN ---
HPI Time seen Time Seen by Provider: 05/16/24 18:59 HPI Comment HPI Comment: History as below. Complaint/Symptoms Chief Complaint Doctor Comments: Patient is 69yr old female in ER after a fall. COVID-19 Coronavirus risk:travel/contact w/high risk person: No Has patient experienced Coronavirus symptoms: No Nurses notes reviewed Nurses Notes Review: Yes PMH PMH Past Medical History: CHF, Coronary Artery Disease, Diabetes and Renal Disease Past Surgical History: Yes Surgical History: Angioplasty/Stents, Appendectomy and Ortho Surgery Family History Family Medical History: Coronary Artery Disease Social History Do you use any recreational Drugs:: No ROS Review of Systems Constitutional: No Symptoms Reported; negative Fever Eyes: No Symptoms Reported ENTM: No Symptoms Reported; negative Nose Discharge or Nose Congestion Respiratoy: No Symptoms Reported; negative Moist Cough or Short of Breath Cardiovascular: No Symptoms Reported Gastrointestinal/Abdominal: Diarrhea; negative Vomiting Genitourinary: No Symptoms Reported; negative Dysuria Neurological: Weakness Musculoskeletal: Knee (left knee pain.) Integumentary: No Symptoms Reported; negative Rash Hematologic/Lymphatic: Easy Bruising Endocrine: Increased Thirst; negative Increased Urine Psychiatric: No Symptoms Reported All Other Systems: Reviewed and Negative PE Vital Signs Vitals: Vital Signs Temperature 98.3 F Pulse Rate 79 Pulse Rate 79 Pulse Rate 78 Pulse Rate 78 Pulse Rate 78 Pulse Rate 78 Pulse Rate 77 Pulse Rate 79 Pulse Rate 79 Pulse Rate 79 Pulse Rate 82 Pulse Rate 76 Pulse Rate 77 Pulse Rate 78 Pulse Rate 78 Pulse Rate 78 Pulse Rate 78 Pulse Rate 79 Pulse Rate 78 Pulse Rate 77 Pulse Rate 79 Pulse Rate 79 Pulse Rate 79 Pulse Rate 81 Pulse Rate 80 Respiratory Rate 18 Respiratory Rate 18 Blood Pressure 148/73 Blood Pressure 131/78 Blood Pressure 148/76 Blood Pressure 148/76 Blood Pressure 148/76 Blood Pressure 156/109 Blood Pressure 176/79 Blood Pressure 160/85 Blood Pressure 159/76 Blood Pressure 144/73 Blood Pressure 151/80 Blood Pressure 132/77 Blood Pressure 155/81 Blood Pressure 159/85 Blood Pressure 159/83 O2 Sat by Pulse Oximetry 95 O2 Sat by Pulse Oximetry 96 O2 Sat by Pulse Oximetry 96 O2 Sat by Pulse Oximetry 96 O2 Sat by Pulse Oximetry 97 O2 Sat by Pulse Oximetry 97 O2 Sat by Pulse Oximetry 100 O2 Sat by Pulse Oximetry 100 O2 Sat by Pulse Oximetry 100 O2 Sat by Pulse Oximetry 100 O2 Sat by Pulse Oximetry 100 O2 Sat by Pulse Oximetry 99 O2 Sat by Pulse Oximetry 99 O2 Sat by Pulse Oximetry 99 O2 Sat by Pulse Oximetry 100 O2 Sat by Pulse Oximetry 99 O2 Sat by Pulse Oximetry 97 O2 Sat by Pulse Oximetry 100 O2 Sat by Pulse Oximetry 99 O2 Sat by Pulse Oximetry 100 O2 Sat by Pulse Oximetry 99 O2 Sat by Pulse Oximetry 100 O2 Sat by Pulse Oximetry 98 O2 Sat by Pulse Oximetry 98 O2 Sat by Pulse Oximetry 97 O2 Sat by Pulse Oximetry 98 General Limitations: No Limitations General Appearance: Alert and In No Apparent Distress Head Head Exam: Normal Inspection and Atraumatic Eyes Eye exam: Normal Appearance; negative Scleral Icterus or Conjunctival Injection ENT ENT Exam: Normal Exam, Normal Oropharynx, Normal External Ear Exam and TM's Normal Bilaterally Neck Neck Exam: Normal Inspection and Trachea Midline; negative Tenderness Chest Chest Inspection: Normal Inspection and Symmetric Chest Wall Rise; negative Tenderness Respiratory Respiratory Exam: Normal Lung Sounds Bilat; negative Accessory Muscle Use, Chest Wall Tenderness or Respiratory Distress Respiratory Exam: Bilateral: Clear to Auscultation Cardiovascular Cardiovascular Exam: Regular Rate, Normal Rhythm and Normal Heart Sounds; negative Systolic Murmur or Diastolic Murmur Abdominal Exam Abdominal Exam: Normal Bowel Sounds and Tenderness Abdominal Tenderness: Diffuse and Moderate Extremities Extremities Exam: Tenderness (left knee tenderness. ROM decrease.) Back Back Exam: Normal Inspection; negative (R) CVA Tenderness, (L) CVA Tenderness or Paraspinal Tenderness Neurological Neurological Exam: Alert and Oriented X3; negative Motor Sensory Deficit Psychiatric Psychiatric Exam: Normal Affect and Normal Mood Skin Skin Exam: Warm and Intact MDM Differential Diagnosis Differential Diagnosis: Abrasion, Contusion, Fracture, Sprain and Other (UTI, GENERALIZED WEAKNESS, DEHYDRATION.) ROR Labs Reviewed 05/16/24 19:40 05/16/24 19:40 Laboratory: WBC 7.1 X10^3/uL (3.6-10.0) 05/16/24 19:40 RBC 4.32 X10^6/uL (3.5-5.4) 05/16/24 19:40 Hgb 11.8 g/dL (12.0-16.0) L 05/16/24 19:40 Hct 34.7 % (36.0-47.0) L 05/16/24 19:40 MCV 80.4 fL (80.0-100.0) 05/16/24 19:40 MCH 27.4 pg (27.0-34.0) 05/16/24 19:40 MCHC 34.1 g/dL (33.0-35.0) 05/16/24 19:40 RDW 15.2 % (11.6-16.5) 05/16/24 19:40 Plt Count 171 X10^3/uL (150.0-450.0) 05/16/24 19:40 MPV 7.9 fL (7.4-11.0) 05/16/24 19:40 Neut % (Auto) 67.9 % (42.0-75.0) 05/16/24 19:40 Lymph % (Auto) 21.6 % (21.0-51.0) 05/16/24 19:40 [place] % (Auto) 7.8 % (0.0-13.0) 05/16/24 19:40 Eos % (Auto) 2.0 % (0.9-2.9) 05/16/24 19:40 Baso % (Auto) 0.7 % (0.2-1.0) 05/16/24 19:40 Neut # (Auto) 4.8 x10^3/uL (2.2-4.8) 05/16/24 19:40 Lymph # (Auto) 1.5 X10^3/uL (1.3-2.9) 05/16/24 19:40 [place] # (Auto) 0.6 x10^3/uL (0.3-0.8) 05/16/24 19:40 Eos # (Auto) 0.1 x10^3/uL (0.0-0.2) 05/16/24 19:40 Baso # (Auto) 0.0 X10^3/uL (0.0-0.1) 05/16/24 19:40 Absolute Nucleated RBC 0.1 /100WBC 05/16/24 19:40 Sodium 140 mmol/L (136-145) 05/16/24 19:40 Corrected Sodium TNP 05/16/24 19:40 Potassium 3.0 mmol/L (3.5-5.1) L 05/16/24 19:40 Chloride 103 mmol/L (98-107) 05/16/24 19:40 Carbon Dioxide 28.1 mmol/L (21-32) 05/16/24 19:40 BUN 15 mg/dL (7-18) 05/16/24 19:40 Creatinine 0.72 mg/dL (0.55-1.02) 05/16/24 19:40 Est GFR (MDRD) Af Amer > 60 (>60) 05/16/24 19:40 Est GFR (MDRD) Non-Af > 60 (>60) 05/16/24 19:40 Glucose 93 mg/dL (65-99) 05/16/24 19:40 Calcium 9.2 mg/dL (8.5-10.1) 05/16/24 19:40 Corrected Calcium TNP 05/16/24 19:40 Magnesium 2.0 mg/dL (2.0-2.9) 05/16/24 19:40 Total Bilirubin 0.50 mg/dL (0.2-1.0) 05/16/24 19:40 AST 15 Units/L (15-37) 05/16/24 19:40 ALT 17 Units/L (12-78) 05/16/24 19:40 Alkaline Phosphatase 86 Units/L (46-116) 05/16/24 19:40 Creatine Kinase 103 Units/L (26-192) 05/16/24 19:40 Troponin I High Sens 5.4 ng/L (4.0-60.0) 05/16/24 19:40 B-Natriuretic Peptide 43.3 pg/mL (0-79) 05/16/24 19:40 Total Protein 7.8 g/dL (6.4-8.2) 05/16/24 19:40 Albumin 3.5 g/dL (3.4-5.0) 05/16/24 19:40 Globulin 4.3 g/dL (2.5-4.5) 05/16/24 19:40 Albumin/Globulin Ratio 0.8 Ratio (1.1-2.1) L 05/16/24 19:40 Specimen Type Catherized urine 05/16/24 19:12 Urine Color Yellow (YELLOW) 05/16/24 19:12 Urine Appearance Cloudy (CLEAR) 05/16/24 19:12 Urine pH 6.0 (5.0 - 8.0) 05/16/24 19:12 Ur Specific [place] 1.020 (1.000-1.030) 05/16/24 19:12 Urine Protein 2+ (NEGATIVE) 05/16/24 19:12 Urine Glucose (UA) 1+ (NEGATIVE) 05/16/24 19:12 Urine Ketones Negative (NEGATIVE) 05/16/24 19:12 Urine Blood 3+ (NEGATIVE) 05/16/24 19:12 Urine Nitrite Negative (NEGATIVE) 05/16/24 19:12 Urine Bilirubin Negative (NEGATIVE) 05/16/24 19:12 Urine Urobilinogen Normal (NORMAL) 05/16/24 19:12 Ur Leukocyte Esterase 3+ (NEGATIVE) 05/16/24 19:12 Urine RBC 20-30 /HPF (0-3) A 05/16/24 19:12 Urine WBC 20-30 /HPF (0-5) A 05/16/24 19:12 Ur Squamous Epith Cells Rare /HPF (NEGATIVE) 05/16/24 19:12 Amorphous Sediment 2+ /HPF (NEGATIVE) 05/16/24 19:12 Urine Bacteria 3+ /HPF (NEGATIVE) 05/16/24 19:12 Urine Mucus Few /HPF (NEGATIVE) 05/16/24 19:12 Ur Culture Indicated? Yes/culture set up 05/16/24 19:12 Opioid Opioid Risk Tool Age (Omer box if 16-45): No History of Preadolescent Sexual Abuse: No Total: 0 Total Score Risk Category: Low Risk Copyright: Neal DOMINGUEZ predicting aberrant behaviors Discharge Plan Diagnosis Discharge Problem: Failure of outpatient treatment, Generalized weakness, Hypokalemia, Dehydration UTI (urinary tract infection) Qualifiers: Urinary tract infection type: site unspecified Hematuria presence: with hematuria Qualified Code(s): N39.0 - Urinary tract infection, site not specified Abdominal pain Qualifiers: Abdominal location: generalized Qualified Code(s): R10.84 - Generalized abdominal pain Diarrhea Qualifiers: Diarrhea type: unspecified type Qualified Code(s): R19.7 - Diarrhea, unspecified Discharge Plan Patient Disposition: 09 ADMITTED INPATIENT Condition: Stable Orders to Discharge Patient Discharge Orders: Transfer (Routine); Ordered 05/16/24 Ordered By: BRIEN WILL
[2024-05-16 19:21] LABS: BILIRUBIN,URINE NEGATIVE (NEGATIVE); BLOOD/HEMOGLOBIN,URINE 3+ (NEGATIVE); GLUCOSE, URINE 1+ (NEGATIVE); KETONES,URINE NEGATIVE (NEGATIVE); LEUKOCYTE ESTERASE ,URINE 3+ (NEGATIVE); NITRITES,URINE NEGATIVE (NEGATIVE); PROTEIN,URINE 2+ (NEGATIVE); UROBILINOGEN,URINE NORMAL (NORMAL)
[2024-05-16 19:26] LABS: APPEARANCE,URINE CLOUDY (CLEAR); COLOR,URINE YELLOW (YELLOW)
[2024-05-16 19:33] LABS: BACTERIA,URINE 3+ /HPF (NEGATIVE); RBC,URINE 20-30 /HPF (0-3); SQUAMOUS EPITHELIAL CELL,UR RARE /HPF (NEGATIVE)
[2024-05-16 19:49] LABS: BASOPHILS % (AUTO) 0.7 % (0.2-1.0); EOSINOPHILS # (AUTO) 0.1 x10^3/uL (0.0-0.2); HEMATOCRIT 34.7 % (36.0-47.0); HEMOGLOBIN 11.8 g/dL (12.0-16.0); LYMPHOCYTES # (AUTO) 1.5 X10^3/uL (1.3-2.9); LYMPHOCYTES % (AUTO) 21.6 % (21.0-51.0); MEAN CORPUSCULAR HEMOGLOBIN 27.4 pg (27.0-34.0); MEAN CORPUSCULAR HGB CONC 34.1 g/dL (33.0-35.0); MEAN CORPUSCULAR VOLUME 80.4 fL (80.0-100.0); MEAN PLATELET VOLUME 7.9 fL (7.4-11.0); MONOCYTES # (AUTO) 0.6 x10^3/uL (0.3-0.8); MONOCYTES % (AUTO) 7.8 % (0.0-13.0); NEUTROPHILS # (AUTO) 4.8 x10^3/uL (2.2-4.8); NEUTROPHILS % (AUTO) 67.9 % (42.0-75.0); PLATELET COUNT 171 X10^3/uL (150.0-450.0); RED BLOOD COUNT 4.32 X10^6/uL (3.5-5.4); RED CELL DISTRIBUTION WIDTH 15.2 % (11.6-16.5); WHITE BLOOD COUNT 7.1 X10^3/uL (3.6-10.0)
[2024-05-16 20:03] LABS: ALANINE AMINOTRANSFERASE 17 Units/L (12-78); ALBUMIN 3.5 g/dL (3.4-5.0); ALKALINE PHOSPHATASE 86 Units/L (46-116); ASPARTATE AMINO TRANSFERASE 15 Units/L (15-37); BLOOD UREA NITROGEN 15 mg/dL (7-18); CALCIUM 9.2 mg/dL (8.5-10.1); CARBON DIOXIDE 28.1 mmol/L (21-32); CHLORIDE 103 mmol/L (98-107); CREATINE KINASE 103 Units/L (26-192); CREATININE 0.72 mg/dL (0.55-1.02); GLUCOSE 93 mg/dL (65-99); SODIUM 140 mmol/L (136-145); TOTAL PROTEIN 7.8 g/dL (6.4-8.2); eGFR NON BLACK RACES > 60 (>60)
--- NOTE | 2024-05-16 20:24 | CT ---
EXAMINATION: HEAD (TRAUMA) HISTORY: C/O LEFT KNEE PAIN S/P FALL, LOWER ABD PAIN AND MALAISE. PER EMS PT IS CURRENTLY BEING TREATED FOR UT I.; COMPARISON: CT brain 05/22/2023 TECHNIQUE: Contiguous noncontrast axial CT images of the brain. Images reviewed in the axial imaging plane with reformatted sagittal and coronal images.The above CT scan was done with automated exposure control a nd the mA and kV was adjusted to obtain quality images according to patient size. FINDINGS: No evidence of acute intracranial hemorrhage, mass effect, or midline shift. Ventricles normal size and shape. Generalized decreased density deep white matter adjacent to the lateral ventricles and ce ntrum semiovale regions bilaterally without associated mass effect. Consider chronic ischemic white matter changes from small vessel disease or other cause of gliosis. Calvarium appears intact. IMPRESSION: No acute intracranial hemorrhage or mass effect. THIS IS AN ELECTRONICALLY VERIFIED FINAL REPORT 05/16/2024 8:21 PM - Electronically signed by Eleanor Coleman MD
[2024-05-16] MEDS: NS + KCL 20 MEQ/L 1,000 ML IV SCH (20:31)
[2024-05-16] MEDS: ROCEPHIN VIAL 1 GRAM IVP ONE (20:32)
--- NOTE | 2024-05-16 21:07 | CT ---
EXAM:ABDOMEN/PELVIS W/O CONHISTORY:C/O LEFT KNEE PAIN S/P FALL, LOWER ABD PAIN AND MALAISE. PER EMS PT IS CURRENTLY BEING TREATED FOR UTI.;COMPARISON:05/04/2023.TECHNIQUE:Ora l contrast was given but no IV contrast. spiral CT imaging was performed through the abdomen and pelvis and axial, coronal, and sagittal CT images were generated.FINDINGS:There is mild basilar atelectasis. There is no pleural effusion. The heart size is normal. The liver, gallbladder, pancreas, spleen, adrenal glands are normal. Both kidneys are normal in size. There is a 2 mm nonobstructing stone in the right kidney. The urinary bladder is grossly unremarkable. The uterus is normal. The stomach and small bowel are normal. The appendix is not identified. There are diverticula: But no diverticulitis. There is some nonspecific wall thickening in the distal colon. There is no femur fracture. There is no pelvic fracture. There is scoliosis and degeneration in the lumbar spine but no lumbar fracture.IMPRESSION:1. 2 mm nonobstructing stone in the right kidney.2. Mild non-specific wall thickening of the distal colon.3. No fracture identified.THIS IS AN ELECTRONICALLY VERIFIED FINAL REPORT05/16/2024 9:04 PM - Electronically signed by Chandler Prakash MD
[2024-05-16] MEDS ORDERED: NORCO 5/325 MG TAB ONE (22:12)
[2024-05-16] MEDS: NORCO 5/325 MG TAB PO ONE (22:16)
[2024-05-16 22:34] VITALS: BMI 20.6
[2024-05-16] MEDS ORDERED: FLEXERIL TAB 10 MG PO PRN (23:58)
[2024-05-16] MEDS ORDERED: NEURONTIN CAP 400 MG PO PRN (23:58)
[2024-05-17] MEDS: NS 1,000 ML IV 1,000 ML IV SCH (01:21)
[2024-05-17] MEDS ORDERED: NovoLIN R (or HumuLIN R) SUBCUT PRN (01:51)
[2024-05-17 05:38] LABS: BASOPHILS % (AUTO) 0.8 % (0.2-1.0); EOSINOPHILS # (AUTO) 0.1 x10^3/uL (0.0-0.2); EOSINOPHILS % (AUTO) 2.6 % (0.9-2.9); HEMATOCRIT 30.8 % (36.0-47.0); HEMOGLOBIN 10.3 g/dL (12.0-16.0); LYMPHOCYTES # (AUTO) 1.8 X10^3/uL (1.3-2.9); LYMPHOCYTES % (AUTO) 33.3 % (21.0-51.0); MEAN CORPUSCULAR HEMOGLOBIN 27.2 pg (27.0-34.0); MEAN CORPUSCULAR HGB CONC 33.4 g/dL (33.0-35.0); MEAN CORPUSCULAR VOLUME 81.2 fL (80.0-100.0); MEAN PLATELET VOLUME 8.6 fL (7.4-11.0); MONOCYTES # (AUTO) 0.7 x10^3/uL (0.3-0.8); MONOCYTES % (AUTO) 12.2 % (0.0-13.0); NEUTROPHILS # (AUTO) 2.7 x10^3/uL (2.2-4.8); NEUTROPHILS % (AUTO) 51.1 % (42.0-75.0); PLATELET COUNT 172 X10^3/uL (150.0-450.0); RED BLOOD COUNT 3.79 X10^6/uL (3.5-5.4); RED CELL DISTRIBUTION WIDTH 14.7 % (11.6-16.5); WHITE BLOOD COUNT 5.4 X10^3/uL (3.6-10.0)
[2024-05-17 05:55] LABS: ALANINE AMINOTRANSFERASE 16 Units/L (12-78); ALKALINE PHOSPHATASE 72 Units/L (46-116); ASPARTATE AMINO TRANSFERASE 12 Units/L (15-37); BLOOD UREA NITROGEN 12 mg/dL (7-18); CALCIUM 8.9 mg/dL (8.5-10.1); CARBON DIOXIDE 28.4 mmol/L (21-32); CHLORIDE 105 mmol/L (98-107); COR CA(FOR HYPOALB) 9.7 mg/dL (8.5-10.1); CREATININE 0.59 mg/dL (0.55-1.02); GLUCOSE 103 mg/dL (65-99); MAGNESIUM 1.9 mg/dL (2.0-2.9); SODIUM 141 mmol/L (136-145); TOTAL PROTEIN 6.8 g/dL (6.4-8.2); eGFR NON BLACK RACES > 60 (>60)
[2024-05-17 05:56] LABS: POTASSIUM 2.7 mmol/L (3.5-5.1)
[2024-05-17] MEDS ORDERED: CONSULT PHARMACY - POTASSIUM & MAGNESIUM XX SCH (06:00)
--- NOTE | 2024-05-17 06:26 | RAD ---
EXAM:Portable chestHISTORY:FallCOMPARISON:05/22/2023 br.br.br.br ectatic. Lung [place] are free of acute infiltrates. No pleural effusion or pneumothorax identified. Bony thorax is unremarkable.IMPRESSION:No significant abnormality identifiedTHIS IS AN ELECTRONICALLY VERIFIED FINAL REPORT05/17/2024 6:22 AM - Electronically signed by Amador Ley MD
--- NOTE | 2024-05-17 06:29 | RAD ---
EXAM:Left knee three viewsHISTORY:Fall, left knee painCOMPARISON:08/28/2023FINDINGS:No fracture, lytic, or blastic lesion identified. No joint erosion or joint effusion is identified. No periarticular soft tissue abnormality identified. There is medial and lateral meniscal chondrocalcinosis present. This is most frequently seen with gout pseudogout and hemochromatosisIMPRESSION:No acute traumatic abnormalityMedial and lateral meniscal chondrocalcinosisTHIS IS AN ELECTRONICALLY VERIFIED FINAL REPORT05/17/2024 6:26 AM - Electronically signed by Amador Ley MD
[2024-05-17] MEDS: SINEMET (PLAIN) 25/100 MG PO SCH (08:36)
[2024-05-17] MEDS: ZOLOFT PO SCH (08:36)
[2024-05-17] MEDS: PriLOSEC PO SCH (08:36)
[2024-05-17] MEDS: ELIQUIS PO SCH (08:36)
[2024-05-17] MEDS: POTASSIUM CHLORIDE INJ 40 MEQ VIAL 60 MEQ, MAGNESIUM SULFATE 50% INJ VIAL 2 G in NS 500... IV ONE (08:50)
[2024-05-17] MEDS ORDERED: MAG-OX TAB PO SCH (09:00)
[2024-05-17] MEDS ORDERED: K-DUR TAB 20 MEQ PO SCH (09:00)
[2024-05-17] MEDS: NORCO 5/325 MG TAB PO PRN (12:35)
--- NOTE | 2024-05-17 17:06 | DR.H&P ---
H&P History & Physical for Day of: H&P Date: 05/16/24 Chief Complaint Chief Complaint: FALL History of Present Illness History of Present Illness: PT IS 69 WF, ER ADMISSION AFTER PT PRESENTED WITH CO FALL. PT HAS BEEN SICK WITH A UTI, CURRENTLY ON PO ATBX PRIOR TO ADMISSION. PT HAS HAD INCREASED WEAKNESS AND RELATES FALL TO WEAKNESS. PT HAS A PMH OF CAD, HTN, OA, DM, AND COPD. PT ADMITTED FOR EVALUATION AND TREATMENT OF ACUTE ILLNESS. Past Medical History Past Medical History: CHF, Coronary Artery Disease, Diabetes and Renal Disease Past Surgical History Surgical History: Angioplasty/Stents Family History Family Medical History: Diabetes Mellitus and Cancer Social History Does patient currently use any type of tobacco product: No Have you used tobacco products in the last 12 months: No Type of Tobacco Use: None How many years tobacco product used: 0 Does any household member use tobacco: No Alcohol Use: None Drug Use: None Medications Home Medications: Home Medications Medication Instructions Recorded Confirmed Type hydrocodone 5 mg-acetaminophen 325 1 tab PO QDAY PRN 04/01/23 05/16/24 History mg tablet omeprazole 40 mg capsule,delayed 40 mg PO DAILY 04/01/23 05/16/24 History release rosuvastatin 10 mg tablet 10 mg PO QPM 04/01/23 05/16/24 History sertraline 50 mg tablet 50 mg PO QDAY 04/01/23 05/16/24 History apixaban 5 mg tablet (Eliquis) 5 mg PO BID 05/27/23 05/16/24 History carbidopa 25 mg-levodopa 100 mg 1 tab PO DAILY 05/16/24 05/16/24 History tablet Allergies Allergies Allergy/AdvReac Type Severity Reaction Status Date / Time No Known Drug Allergies Allergy Unknown Verified 05/16/24 22:41 Labs 05/17/24 04:45 05/17/24 04:45 Labs: 05/16/24 19:12 Urine,Catheterized Urine Culture - Preliminary Laboratory WBC 5.4 X10^3/uL (3.6-10.0) 05/17/24 04:45 RBC 3.79 X10^6/uL (3.5-5.4) 05/17/24 04:45 Hgb 10.3 g/dL (12.0-16.0) L 05/17/24 04:45 Hct 30.8 % (36.0-47.0) L 05/17/24 04:45 MCV 81.2 fL (80.0-100.0) 05/17/24 04:45 MCH 27.2 pg (27.0-34.0) 05/17/24 04:45 MCHC 33.4 g/dL (33.0-35.0) 05/17/24 04:45 RDW 14.7 % (11.6-16.5) 05/17/24 04:45 Plt Count 172 X10^3/uL (150.0-450.0) 05/17/24 04:45 MPV 8.6 fL (7.4-11.0) 05/17/24 04:45 Neut % (Auto) 51.1 % (42.0-75.0) 05/17/24 04:45 Lymph % (Auto) 33.3 % (21.0-51.0) 05/17/24 04:45 [place] % (Auto) 12.2 % (0.0-13.0) 05/17/24 04:45 Eos % (Auto) 2.6 % (0.9-2.9) 05/17/24 04:45 Baso % (Auto) 0.8 % (0.2-1.0) 05/17/24 04:45 Neut # (Auto) 2.7 x10^3/uL (2.2-4.8) 05/17/24 04:45 Lymph # (Auto) 1.8 X10^3/uL (1.3-2.9) 05/17/24 04:45 [place] # (Auto) 0.7 x10^3/uL (0.3-0.8) 05/17/24 04:45 Eos # (Auto) 0.1 x10^3/uL (0.0-0.2) 05/17/24 04:45 Baso # (Auto) 0.0 X10^3/uL (0.0-0.1) 05/17/24 04:45 Absolute Nucleated RBC 0.1 /100WBC 05/17/24 04:45 Sodium 141 mmol/L (136-145) 05/17/24 04:45 Corrected Sodium TNP 05/17/24 04:45 Potassium 2.7 mmol/L (3.5-5.1) L* 05/17/24 04:45 Chloride 105 mmol/L (98-107) 05/17/24 04:45 Carbon Dioxide 28.4 mmol/L (21-32) 05/17/24 04:45 BUN 12 mg/dL (7-18) 05/17/24 04:45 Creatinine 0.59 mg/dL (0.55-1.02) 05/17/24 04:45 Est GFR (MDRD) Af Amer > 60 (>60) 05/17/24 04:45 Est GFR (MDRD) Non-Af > 60 (>60) 05/17/24 04:45 Glucose 103 mg/dL (65-99) H 05/17/24 04:45 POC Glucose (mg/dL) 127 mg/dL (65-99) H 05/17/24 16:38 Calcium 8.9 mg/dL (8.5-10.1) 05/17/24 04:45 Corrected Calcium 9.7 mg/dL (8.5-10.1) 05/17/24 04:45 Magnesium 1.9 mg/dL (2.0-2.9) L 05/17/24 04:45 Total Bilirubin 0.40 mg/dL (0.2-1.0) 05/17/24 04:45 AST 12 Units/L (15-37) L 05/17/24 04:45 ALT 16 Units/L (12-78) 05/17/24 04:45 Alkaline Phosphatase 72 Units/L (46-116) 05/17/24 04:45 Creatine Kinase 103 Units/L (26-192) 05/16/24 19:40 Troponin I High Sens 5.4 ng/L (4.0-60.0) 05/16/24 19:40 B-Natriuretic Peptide 43.3 pg/mL (0-79) 05/16/24 19:40 Total Protein 6.8 g/dL (6.4-8.2) 05/17/24 04:45 Albumin 3.0 g/dL (3.4-5.0) L 05/17/24 04:45 Globulin 3.8 g/dL (2.5-4.5) 05/17/24 04:45 Albumin/Globulin Ratio 0.8 Ratio (1.1-2.1) L 05/17/24 04:45 Specimen Type Catherized urine 05/16/24 19:12 Urine Color Yellow (YELLOW) 05/16/24 19:12 Urine Appearance Cloudy (CLEAR) 05/16/24 19:12 Urine pH 6.0 (5.0 - 8.0) 05/16/24 19:12 Ur Specific [place] 1.020 (1.000-1.030) 05/16/24 19:12 Urine Protein 2+ (NEGATIVE) 05/16/24 19:12 Urine Glucose (UA) 1+ (NEGATIVE) 05/16/24 19:12 Urine Ketones Negative (NEGATIVE) 05/16/24 19:12 Urine Blood 3+ (NEGATIVE) 05/16/24 19:12 Urine Nitrite Negative (NEGATIVE) 05/16/24 19:12 Urine Bilirubin Negative (NEGATIVE) 05/16/24 19:12 Urine Urobilinogen Normal (NORMAL) 05/16/24 19:12 Ur Leukocyte Esterase 3+ (NEGATIVE) 05/16/24 19:12 Urine RBC 20-30 /HPF (0-3) A 05/16/24 19:12 Urine WBC 20-30 /HPF (0-5) A 05/16/24 19:12 Ur Squamous Epith Cells Rare /HPF (NEGATIVE) 05/16/24 19:12 Amorphous Sediment 2+ /HPF (NEGATIVE) 05/16/24 19:12 Urine Bacteria 3+ /HPF (NEGATIVE) 05/16/24 19:12 Urine Mucus Few /HPF (NEGATIVE) 05/16/24 19:12 Ur Culture Indicated? Yes/culture set up 05/16/24 19:12 Review of Systems Constitutional: Weakness Eyes: No Symptoms Reported ENT: No Symptoms Reported Respiratory: Shortness of Breath Cardiovascular: No Symptoms Reported Gastrointestinal: Constipation Genitourinary: Dysuria, Frequency and Incontinence Musculoskeletal: Back Pain Skin: No Symptoms Reported Neurological: Weakness Physical Exam Vital Signs: Vital Signs Temperature 97.1 F Pulse Rate [Left Radial] 72 Pulse Rate [Left Radial] 74 Pulse Rate [Left Radial] 66 Pulse Rate [Left Radial] 65 Pulse Rate [Left Radial] 64 Pulse Rate [Left Radial] 62 Respiratory Rate 20 Respiratory Rate 16 Respiratory Rate 12 Respiratory Rate 16 Respiratory Rate 15 Respiratory Rate 16 Respiratory Rate 13 Respiratory Rate 17 Blood Pressure [Left Arm] 131/77 Blood Pressure [Left Arm] 144/85 Blood Pressure [Left Arm] 142/75 Blood Pressure [Left Arm] 146/78 Blood Pressure [Left Arm] 132/73 Blood Pressure [Left Arm] 155/79 O2 Sat by Pulse Oximetry 99 O2 Sat by Pulse Oximetry 95 O2 Sat by Pulse Oximetry 95 O2 Sat by Pulse Oximetry 98 O2 Sat by Pulse Oximetry 97 O2 Sat by Pulse Oximetry 95 Oriented: Normal Eyes: Normal Ear: Normal Nose: Discharge Throat: Normal Respiratory: RLL Diminished and LLL Diminished Cardiovascular: Normal Auscultation: Bowel Sounds: Normal Palpation: Normal Tenderness: Suprapubic and Mild Skin: Decreased [place]urgur Musculoskeletal: Motor Deficit and Instability Psychiatric: Normal Mood Description: Calm Affect: Flat Speech Pattern: Clear and Appropriate Assessment/Plan (1) Hypokalemia: Status: Acute Plan: ADMIT, IV HYDRATION, IV ATBX CULTURE ON ADMISSION EKG MONITORING ELECTROLYTE REPLACEMENT THERAPY (2) UTI (urinary tract infection): Qualifiers: Hematuria presence: with hematuria Urinary tract infection type: site unspecified Qualified Code(s): N39.0 - Urinary tract infection, site not specified; R31.9 - Hematuria, unspecified Status: Acute (3) Generalized weakness: Status: Acute (4) Diabetes mellitus: Status: None (5) CAD (coronary artery disease): Status: Acute
--- NOTE | 2024-05-17 17:10 | PCM.PROG ---
Progress Note Progress Note for Day of Date of Exam: 05/17/24 Subjective Subjective: PT IS 69 WF, ER ADMISSION WITH FALL FROM DIFFUSE WEAKNESS FROM HYPOKALEMIA AND UTI. PT WAS STARTED ON IV HYDRATION AND ELECTROYLTE REPLACEMENT THERAPY. PT HAS DM, BS CONTROLLED. PT BP STABLE 131/77 THIS AM, HOME MEDICATION REVIEWED AND RESUMED. PLAN TO CONSULT CASE MANAGEMENT FOR REHAB PLACEMENT WHEN PT'S ACUTE ILLNESS HAS RESOLVED. PT DENIES ANY CHEST PAIN, HAS HAD SOME MILD SOB BUT RELATED TO ALLERGIES AND WEAKNESS. Past Medical Family Social History Allergies: Allergies No Known Drug Allergies Allergy (Unknown, Verified 05/16/24 22:41) Onset Date: 07/05/2020 Vital Signs and I&O's Vital Signs: Vital Signs Temperature 97.7 F Temperature 97.1 F Pulse Rate [Left Radial] 69 Pulse Rate [Left Radial] 67 Pulse Rate [Left Radial] 72 Pulse Rate [Left Radial] 74 Pulse Rate [Left Radial] 66 Pulse Rate [Left Radial] 65 Pulse Rate [Left Radial] 64 Respiratory Rate 18 Respiratory Rate 13 Respiratory Rate 20 Respiratory Rate 16 Respiratory Rate 12 Respiratory Rate 16 Respiratory Rate 15 Respiratory Rate 16 Respiratory Rate 13 Blood Pressure [Left Arm] 119/71 Blood Pressure [Left Arm] 114/71 Blood Pressure [Left Arm] 131/77 Blood Pressure [Left Arm] 144/85 Blood Pressure [Left Arm] 142/75 Blood Pressure [Left Arm] 146/78 Blood Pressure [Left Arm] 132/73 O2 Sat by Pulse Oximetry 98 O2 Sat by Pulse Oximetry 97 O2 Sat by Pulse Oximetry 99 O2 Sat by Pulse Oximetry 95 O2 Sat by Pulse Oximetry 95 O2 Sat by Pulse Oximetry 98 O2 Sat by Pulse Oximetry 97 Intake and Output: Intake & Output 05/15/24 05/16/24 05/17/24 05/18/24 11:59 11:59 11:59 11:59 Intake Total 171 / 171 1497 / 1497 Balance 171 / 171 1497 / 1497 Physical Exam Oriented: Normal Eyes: Normal Ear: Normal Nose: Discharge Throat: Normal Respiratory: Diminished Cardiovascular: Normal Auscultation: Bowel Sounds: Normal Tenderness: Suprapubic and Mild Skin: Decreased Turgur Musculoskeletal: Motor Deficit and Instability Psychiatric: Normal Mood Description: Calm Affect: Flat Speech Pattern: Clear and Appropriate Laboratory and Diagnostics 05/17/24 04:45 05/17/24 04:45 Labs: 05/16/24 19:12 Urine,Catheterized Urine Culture - Preliminary Laboratory WBC 5.4 X10^3/uL (3.6-10.0) 05/17/24 04:45 RBC 3.79 X10^6/uL (3.5-5.4) 05/17/24 04:45 Hgb 10.3 g/dL (12.0-16.0) L 05/17/24 04:45 Hct 30.8 % (36.0-47.0) L 05/17/24 04:45 MCV 81.2 fL (80.0-100.0) 05/17/24 04:45 MCH 27.2 pg (27.0-34.0) 05/17/24 04:45 MCHC 33.4 g/dL (33.0-35.0) 05/17/24 04:45 RDW 14.7 % (11.6-16.5) 05/17/24 04:45 Plt Count 172 X10^3/uL (150.0-450.0) 05/17/24 04:45 MPV 8.6 fL (7.4-11.0) 05/17/24 04:45 Neut % (Auto) 51.1 % (42.0-75.0) 05/17/24 04:45 Lymph % (Auto) 33.3 % (21.0-51.0) 05/17/24 04:45 [place] % (Auto) 12.2 % (0.0-13.0) 05/17/24 04:45 Eos % (Auto) 2.6 % (0.9-2.9) 05/17/24 04:45 Baso % (Auto) 0.8 % (0.2-1.0) 05/17/24 04:45 Neut # (Auto) 2.7 x10^3/uL (2.2-4.8) 05/17/24 04:45 Lymph # (Auto) 1.8 X10^3/uL (1.3-2.9) 05/17/24 04:45 [place] # (Auto) 0.7 x10^3/uL (0.3-0.8) 05/17/24 04:45 Eos # (Auto) 0.1 x10^3/uL (0.0-0.2) 05/17/24 04:45 Baso # (Auto) 0.0 X10^3/uL (0.0-0.1) 05/17/24 04:45 Absolute Nucleated RBC 0.1 /100WBC 05/17/24 04:45 Sodium 141 mmol/L (136-145) 05/17/24 04:45 Corrected Sodium TNP 05/17/24 04:45 Potassium 2.7 mmol/L (3.5-5.1) L* 05/17/24 04:45 Chloride 105 mmol/L (98-107) 05/17/24 04:45 Carbon Dioxide 28.4 mmol/L (21-32) 05/17/24 04:45 BUN 12 mg/dL (7-18) 05/17/24 04:45 Creatinine 0.59 mg/dL (0.55-1.02) 05/17/24 04:45 Est GFR (MDRD) Af Amer > 60 (>60) 05/17/24 04:45 Est GFR (MDRD) Non-Af > 60 (>60) 05/17/24 04:45 Glucose 103 mg/dL (65-99) H 05/17/24 04:45 POC Glucose (mg/dL) 127 mg/dL (65-99) H 05/17/24 16:38 Calcium 8.9 mg/dL (8.5-10.1) 05/17/24 04:45 Corrected Calcium 9.7 mg/dL (8.5-10.1) 05/17/24 04:45 Magnesium 1.9 mg/dL (2.0-2.9) L 05/17/24 04:45 Total Bilirubin 0.40 mg/dL (0.2-1.0) 05/17/24 04:45 AST 12 Units/L (15-37) L 05/17/24 04:45 ALT 16 Units/L (12-78) 05/17/24 04:45 Alkaline Phosphatase 72 Units/L (46-116) 05/17/24 04:45 Creatine Kinase 103 Units/L (26-192) 05/16/24 19:40 Troponin I High Sens 5.4 ng/L (4.0-60.0) 05/16/24 19:40 B-Natriuretic Peptide 43.3 pg/mL (0-79) 05/16/24 19:40 Total Protein 6.8 g/dL (6.4-8.2) 05/17/24 04:45 Albumin 3.0 g/dL (3.4-5.0) L 05/17/24 04:45 Globulin 3.8 g/dL (2.5-4.5) 05/17/24 04:45 Albumin/Globulin Ratio 0.8 Ratio (1.1-2.1) L 05/17/24 04:45 Specimen Type Catherized urine 05/16/24 19:12 Urine Color Yellow (YELLOW) 05/16/24 19:12 Urine Appearance Cloudy (CLEAR) 05/16/24 19:12 Urine pH 6.0 (5.0 - 8.0) 05/16/24 19:12 Ur Specific [place] 1.020 (1.000-1.030) 05/16/24 19:12 Urine Protein 2+ (NEGATIVE) 05/16/24 19:12 Urine Glucose (UA) 1+ (NEGATIVE) 05/16/24 19:12 Urine Ketones Negative (NEGATIVE) 05/16/24 19:12 Urine Blood 3+ (NEGATIVE) 05/16/24 19:12 Urine Nitrite Negative (NEGATIVE) 05/16/24 19:12 Urine Bilirubin Negative (NEGATIVE) 05/16/24 19:12 Urine Urobilinogen Normal (NORMAL) 05/16/24 19:12 Ur Leukocyte Esterase 3+ (NEGATIVE) 05/16/24 19:12 Urine RBC 20-30 /HPF (0-3) A 05/16/24 19:12 Urine WBC 20-30 /HPF (0-5) A 05/16/24 19:12 Ur Squamous Epith Cells Rare /HPF (NEGATIVE) 05/16/24 19:12 Amorphous Sediment 2+ /HPF (NEGATIVE) 05/16/24 19:12 Urine Bacteria 3+ /HPF (NEGATIVE) 05/16/24 19:12 Urine Mucus Few /HPF (NEGATIVE) 05/16/24 19:12 Ur Culture Indicated? Yes/culture set up 05/16/24 19:12 Plan (1) Hypokalemia: Status: Acute Plan: CT HEAD ON ADMISSION IN ERM IV HYDRATION, IV ATBX CULTURE ON ADMISSION EKG MONITORING ELECTROLYTE REPLACEMENT THERAPY REHAB PLACEMENT (2) UTI (urinary tract infection): Status: Acute Qualifiers: Hematuria presence: with hematuria Urinary tract infection type: site unspecified Qualified Code(s): N39.0 - Urinary tract infection, site not specified; R31.9 - Hematuria, unspecified (3) Generalized weakness: Status: Acute (4) Diabetes mellitus: Status: None (5) CAD (coronary artery disease): Status: Acute
[2024-05-17] MEDS: ROCEPHIN VIAL 1 GRAM 1 G in NS 100 ML IV 100 ML IV SCH (20:43)
[2024-05-17] MEDS: SNACK - Diabetic Appropriate PO SCH (20:43)
[2024-05-17] MEDS: CRESTOR TAB 10 MG PO SCH (20:44)
[2024-05-18 05:34] LABS: BASOPHILS % (AUTO) 0.9 % (0.2-1.0); EOSINOPHILS # (AUTO) 0.2 x10^3/uL (0.0-0.2); HEMATOCRIT 29.8 % (36.0-47.0); HEMOGLOBIN 10.2 g/dL (12.0-16.0); LYMPHOCYTES # (AUTO) 1.4 X10^3/uL (1.3-2.9); MEAN CORPUSCULAR HEMOGLOBIN 27.4 pg (27.0-34.0); MEAN CORPUSCULAR HGB CONC 34.3 g/dL (33.0-35.0); MEAN PLATELET VOLUME 8.1 fL (7.4-11.0); MONOCYTES # (AUTO) 0.4 x10^3/uL (0.3-0.8); MONOCYTES % (AUTO) 8.5 % (0.0-13.0); NEUTROPHILS # (AUTO) 2.6 x10^3/uL (2.2-4.8); NEUTROPHILS % (AUTO) 56.6 % (42.0-75.0); PLATELET COUNT 130 X10^3/uL (150.0-450.0); RED BLOOD COUNT 3.72 X10^6/uL (3.5-5.4); RED CELL DISTRIBUTION WIDTH 14.8 % (11.6-16.5); WHITE BLOOD COUNT 4.6 X10^3/uL (3.6-10.0)
[2024-05-18 05:41] LABS: ALANINE AMINOTRANSFERASE 13 Units/L (12-78); ALBUMIN 2.9 g/dL (3.4-5.0); ALKALINE PHOSPHATASE 69 Units/L (46-116); ASPARTATE AMINO TRANSFERASE 14 Units/L (15-37); BLOOD UREA NITROGEN 9 mg/dL (7-18); CALCIUM 8.4 mg/dL (8.5-10.1); CARBON DIOXIDE 26.1 mmol/L (21-32); CHLORIDE 107 mmol/L (98-107); CHOL/HDL RATIO 2.1 (0.0-5.0); CHOLESTEROL 102 mg/dL (0-200); COR CA(FOR HYPOALB) 9.3 mg/dL (8.5-10.1); COR NA(FOR HYPERGLY) 141 mmol/L (136-145); CREATININE 0.61 mg/dL (0.55-1.02); GLUCOSE 123 mg/dL (65-99); HDL CHOLESTEROL 49 mg/dL (40-60); MAGNESIUM 2.1 mg/dL (2.0-2.9); SODIUM 140 mmol/L (136-145); TOTAL PROTEIN 6.5 g/dL (6.4-8.2); TRIGLYCERIDES 52 mg/dL (0-150); eGFR NON BLACK RACES > 60 (>60)
[2024-05-18] MEDS ORDERED: CONSULT PHARMACY - POTASSIUM & MAGNESIUM XX SCH (06:00)
[2024-05-18] MEDS: K-DUR TAB 20 MEQ PO SCH (08:52)
[2024-05-18] MEDS: MILK OF MAGNESIA PO PRN (11:16)
[2024-05-18] MEDS: COLACE CAP 100 MG PO PRN (11:16)
[2024-05-18 12:18] VITALS: BP 138/78; PULSE 70; RESP 16; O2SAT 98
[2024-05-18 12:30] VITALS: TEMP 97.9
== END 2024-05-18 15:50 ==
LOC: SUPCPDRO → ICU 18:50 → ER 18:50 → ICU 23:51
PROVIDERS: ADMIT Family Medicine; ATTEND Internal Medicine
DX: R31.9 Hematuria, unspecified; E87.6 Hypokalemia; N20.0 Calculus of kidney; Z66 Do not resuscitate; I25.10 Atherosclerotic heart disease of native coronary artery without angina pectoris; W18.39XA Other fall on same level, initial encounter; N39.0 Urinary tract infection, site not specified; Z16.29 Resistance to other single specified antibiotic; Z16.23 Resistance to quinolones and fluoroquinolones; R10.84 Generalized abdominal pain; B96.29 Other Escherichia coli [E. coli] as the cause of diseases classified elsewhere; Z16.12 Extended spectrum beta lactamase (ESBL) resistance; R53.1 Weakness; R06.02 Shortness of breath; Y92.099 Unspecified place in other non-institutional residence as the place of occurrence of the external cause; M25.562 Pain in left knee; E83.42 Hypomagnesemia; S09.8XXA Other specified injuries of head, initial encounter; R26.89 Other abnormalities of gait and mobility